=== PATIENT | female | born 1945 | race Two or more races ===

== ENCOUNTER 2018-08-26 10:14 | Emergency (ER) | payer MEDICARE, OTHER ==
[~2018-08-26] VITALS: Ht 152.4 cm; Wt 63.5 kg
[2018-08-26 10:32] VITALS: BP 120/75
--- NOTE | 2018-08-26 10:34 | NUR ---
ED Nurse Note: Pt present at ER with family member c/o flu like symptoms, sore throat, throat pain 7/10, dry cough with yellow think sputum which started 4 days ago. VSS, pt remains calm and cooperative with initial assessment.
[2018-08-26] MEDS ORDERED: LEVAQUIN750 MG ORAL ×2 (10:42→10:43)
[2018-08-26] MEDS ORDERED: PROMETHAZI6.25 MG/1 ORAL (10:43)
--- NOTE | 2018-08-26 10:50 | NUR ---
ED Nurse Note: Pt cleared out to be discharged by ERMD. Pt stable with VSS and at bedside. They received prescriptions with discharge instruction. They verbalized understanding. Pt ambulated with FWW to be discharged.
[2018-08-26 10:51] VITALS: BP 122/74
--- NOTE | 2018-08-26 11:15 | Emergency Room Report ---
History of Present Illness General Chief Complaint: Upper Respiratory Illness Source: Patient Present Illness HPI 72-year-old female presents ED complaining of cough. Started 4 days ago. Productive with greenish phlegm. Also complaining of sore throat. Dull, 7 out of 10, nonradiating. Denies fevers or chills. Denies sick contacts or recent travel. States she received a flu shot in May. No other aggravating or relieving factors. Denies any other associated symptoms Allergies: Coded Allergies: TRAMADOL (Verified Allergy, Severe, Rash, 08/26/18) Patient History Past Medical History: DM, HTN Past Surgical History: none Pertinent Family History: none Social History: Denies: smoking, alcohol use, drug use Now: No Immunizations: UTD Reviewed Nursing Documentation: PMH: Agreed; PSxH: Agreed Nursing Documentation-PMH Past Medical History: No History, Except For Hx Hypertension: Yes Hx Diabetes: Yes Review of Systems All Other Systems: negative except mentioned in HPI Physical Exam Vital Signs Date Time Temp Pulse Resp B/P (MAP) Pulse Ox O2 Delivery O2 Flow Rate FiO2 08/26/18 10:23 97.3 82 20 124/77 95 Room Air 08/26/18 10:32 96 Sp02 EP Interpretation: reviewed, normal General Appearance: no apparent distress, alert, GCS 15, non-toxic Head: normocephalic, atraumatic Eyes: bilateral eye normal inspection, bilateral eye PERRL ENT: hearing grossly normal, normal pharynx, no angioedema, normal voice Neck: full range of motion, supple/symm/no masses Respiratory: chest non-tender, lungs clear, normal breath sounds, speaking full sentences Cardiovascular #1: regular rate, rhythm, no edema Cardiovascular #2: 2+ carotid (R), 2+ carotid (L), 2+ radial (R), 2+ radial (L) , 2+ dorsalis pedis (R), 2+ dorsalis pedis (L) Gastrointestinal: normal bowel sounds, non tender, soft, non-distended, no guarding, no rebound Rectal: deferred Genitourinary: normal inspection, no CVA tenderness Musculoskeletal: back normal, gait/station normal, normal range of motion, non- tender Neurologic: alert, oriented x3, responsive, motor strength/tone normal, sensory intact, speech normal Psychiatric: judgement/insight normal, memory normal, mood/affect normal, no suicidal/homicidal ideation Reflexes: 3+ bicep (R), 3+ bicep (L), 3+ tricep (R), 3+ tricep (L), 3+ knee (R) , 3+ knee (L) Skin: normal color, no rash, warm/dry, well hydrated Lymphatic: no adenopathy Medical Decision Making Diagnostic Impression: Primary Impression: Atypical pneumonia ER Course Hospital Course 72-year-old female presents ED complaining of cough Differential diagnoses include: URI, pharyngitis, otitis media, asthma Clinical course Patient placed on stretcher. After initial history, physical exam reveals a female in no acute distress. Bilateral TM unremarkable. No pharyngeal erythema. No tonsillar exudates. No lymphadenopathy. lungs clear. abdomen soft. Presentation consistent with atypical pneumonia. Given presentation, i will prescribe abx safe for discharge. patient states she has a PMD Diagnosis - atypical pneumonia Stable and discharged home with Rx Levaquin, promethazine. Instructed to followup with PMD. Return to ED if symptoms recur or worsen Last Vital Signs Date Time Temp Pulse Resp B/P (MAP) Pulse Ox O2 Delivery O2 Flow Rate FiO2 08/26/18 10:51 97.3 82 18 122/74 96 Room Air 96 Status: improved Disposition: HOME, SELF-CARE Condition: Stable Scripts Promethazine Hcl (PROMETHAZINE HCL*) 6.25 Mg/5 Ml Syrup 5 ML ORAL Q8H, #120 ML 0 Refills Prov: Georges Cespedes MD 08/26/18 Levofloxacin* (LEVAQUIN*) 750 Mg Tablet 750 MG ORAL DAILY for 5 Days, TAB Prov: Georges Cespedes MD 08/26/18 Referrals: NON PHYSICIAN (PCP) Patient Instructions: Community-Acquired Pneumonia, Adult, [id number] Georges Cespedes MD Aug 26, 2018 11:15
== END 2018-08-26 10:50 | disposition home or self-care (01) ==
LOC: EMR 10:50
DX: J18.9 Pneumonia, unspecified organism (principal); I10 Essential (primary) hypertension; E11.9 Type 2 diabetes mellitus without complications
CPT/HCPCS: 99282